=== PATIENT | male | born 1955 | race Caucasian/White ===

== ENCOUNTER 2017-11-09 12:40 | Inpatient (IN) | payer OTHER ==
[~2017-11-09] VITALS: Ht 167.6 cm; Wt 79.5 kg
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
[2017-11-09] MEDS ORDERED: PROPRANOLOL HCL40 M1 PO (12:59)
[2017-11-09] MEDS ORDERED: ADVIL LIQUI-GE200 M1 PO (13:00)
[2017-11-09] MEDS ORDERED: PAROXETINE HCL30 M1 PO (13:09)
[2017-11-09] MEDS ORDERED: ELIMITE60 GM TOP (13:10)
[2017-11-09] MEDS ORDERED: ACYCLOVIR800 M1 PO (13:10)
[2017-11-09] MEDS ORDERED: BENADRYL25 MG PO (13:16)
[2017-11-09 13:35] LABS: ABSOLUTE BASOPHIL COUNT 0 /CUMM (0.0-0.2); ABSOLUTE EOSINOPHIL COUNT 0.8 /CUMM (0.0-0.7); ABSOLUTE GRANULOCYTE CT 8.9 /CUMM (1.4-6.5); ABSOLUTE LYMPH COUNT 1.9 /CUMM (1.2-3.4); BASOPHIL % 0.3 % (0.0-2.0); EOSINOPHIL % 6.3 % (0-5); GRANULOCYTE % 70.3 % (42.2-75.2); MEAN CORPUSCULAR HGB 34.5 PG (27.0-31.0); MEAN CORPUSCULAR HGB CONC 34.5 G/DL (33.0-37.0); MEAN CORPUSCULAR VOLUME 99.8 FL (80.0-94.0); MEAN PLATELET VOLUME 8.6 FL (7.4-10.4); PLATELET COUNT 226 /CUMM (130-400); RBC DISTRIBUTION WIDTH 13.2 % (11.5-14.5); RED BLOOD CELL CT 4.51 /CUMM (4.70-6.10); WHITE BLOOD CELL COUNT 12.7 /CUMM (4.8-10.8)
[2017-11-09 13:46] LABS: PT 10.9 SEC (9.4-12.5); PTT 28 SEC (25-37)
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
[2017-11-09 15:40] VITALS: BP 155/90
--- NOTE | 2017-11-09 16:31 | Admission Certification ---
Admission Certification Certification Statement - As attending physician, I certify that at the time of - admission, based on clinical presentation, severity of - symptoms, need for further diagnostic testing and - therapeutic interventions, and risk of adverse outcomes - without in-hospital treatment, in my clinical assessment, - this patient requires an acute hospital stay for a minimum - of two nights or longer. I have also considered psychsocial - factors such as support system, advanced age, financial - issues, cognitive issues, and failed out-patient treatments, - past re-admission history, safety of patient, and lack of - compliance as applicable. Specific rationale supporting this admission is: Acute mental status change of unclear etiology
[2017-11-09 17:35] VITALS: BP 152/90
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
[2017-11-09 18:39] VITALS: BP 142/90
[2017-11-09 23:19] VITALS: BP 140/80
[2017-11-10] VITALS (16 sets, daily range): BP systolic 130–150; BP diastolic 74–86
--- NOTE | 2017-11-10 08:15 | PN- Att Addend ---
Attending Addendum Attending Brief Note Patient seen and examined. He is much more awake and alert although tremulous today. He knows that prescription in hospital he knows it is 2018. He has a sitter at the bedside. He is normotensive at 130/80, pulse is 85, breathing at 16-18 and afebrile. His lungs are clear to auscultation, heart is S1-S2 regular and abdomen is soft he has this tremor and I did not make him walk. He has a raised maculopapular rash all over his extremities without any mucosal involvement. He is a 62-year-old male who is here with acute confusional state and change in mental status of unclear etiology. He has leukocytosis and the rash but no other obvious source. Now is developing a mild anion gap. Will encourage p.o. fluids, he does have a history of alcohol abuse but no obvious withdrawal I think the Ativan is just adding to the confusional state will stop the standing Ativan and keep the as needed. Will call an ID consult as I am concerned given the rash. Will also get a chest x-ray and follow-up closely.
[2017-11-10 08:19] LABS: ABSOLUTE BASOPHIL COUNT 0.1 /CUMM (0.0-0.2); ABSOLUTE EOSINOPHIL COUNT 0.7 /CUMM (0.0-0.7); ABSOLUTE GRANULOCYTE CT 9.1 /CUMM (1.4-6.5); ABSOLUTE LYMPH COUNT 1.8 /CUMM (1.2-3.4); ABSOLUTE MONOCYTE COUNT 1.4 /CUMM (0.10-0.60); BASOPHIL % 0.5 % (0.0-2.0); EOSINOPHIL % 5.2 % (0-5); GRANULOCYTE % 69.8 % (42.2-75.2); HEMATOCRIT 45.5 % (42-52); MEAN CORPUSCULAR HGB 33.8 PG (27.0-31.0); MEAN CORPUSCULAR HGB CONC 33.8 G/DL (33.0-37.0); MEAN PLATELET VOLUME 9.3 FL (7.4-10.4); PLATELET COUNT 187 /CUMM (130-400); RBC DISTRIBUTION WIDTH 13.5 % (11.5-14.5); RED BLOOD CELL CT 4.54 /CUMM (4.70-6.10); WHITE BLOOD CELL COUNT 13.1 /CUMM (4.8-10.8)
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
--- NOTE | 2017-11-10 15:15 | RADIOLOGY REPORT ---
EXAMINATION: XR PORTABLE CHEST CLINICAL INFORMATION: Shortness of breath. Altered mental status. COMPARISON: None TECHNIQUE: Portable frontal view of the chest was obtained. 2:30 PM FINDINGS: No significant abnormality is noted involving the heart, lungs, mediastinum, bony thorax or soft tissues. IMPRESSION: Unremarkable examination.
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
[2017-11-11] VITALS: BP 140/86
[2017-11-11 06:49] VITALS: BP 132/80
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
[2017-11-11 07:47] LABS: ABSOLUTE BASOPHIL COUNT 0.1 /CUMM (0.0-0.2); ABSOLUTE EOSINOPHIL COUNT 0.7 /CUMM (0.0-0.7); ABSOLUTE GRANULOCYTE CT 7.8 /CUMM (1.4-6.5); ABSOLUTE LYMPH COUNT 1.6 /CUMM (1.2-3.4); ABSOLUTE MONOCYTE COUNT 1.2 /CUMM (0.10-0.60); BASOPHIL % 0.6 % (0.0-2.0); EOSINOPHIL % 6.1 % (0-5); GRANULOCYTE % 68.2 % (42.2-75.2); HEMATOCRIT 43.9 % (42-52); MEAN CORPUSCULAR HGB 34.5 PG (27.0-31.0); MEAN CORPUSCULAR HGB CONC 34.6 G/DL (33.0-37.0); MEAN CORPUSCULAR VOLUME 99.8 FL (80.0-94.0); MEAN PLATELET VOLUME 8.6 FL (7.4-10.4); PLATELET COUNT 212 /CUMM (130-400); RBC DISTRIBUTION WIDTH 13.6 % (11.5-14.5); WHITE BLOOD CELL COUNT 11.5 /CUMM (4.8-10.8)
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
--- NOTE | 2017-11-11 11:53 | PN- Infect Dx ---
Subjective Subjective: Afebrile. He notes overall improvement with no complaints of pruritus. His mental status has reportedly returned to normal. Objective Last 24 Hrs of Vital Signs/I&O Vital Signs Date Time Temp Pulse Resp B/P B/P Pulse O2 O2 Flow FiO2 Mean Ox Delivery Rate 11/11 1000 78 11/11 0819 132/80 11/11 0800 70 11/11 0649 97.9 84 20 132/80 93 11/11 0000 98.2 90 20 140/86 11/10 2155 98.2 90 20 140/86 97 Room Air 11/10 2105 80 140/80 11/10 2030 98.2 80 20 140/80 11/10 1933 84 20 150/80 11/10 1830 80 20 136/74 11/10 1730 80 20 140/78 11/10 1443 96.8 88 20 140/82 92 Room Air 11/10 1406 70 11/10 1349 87 11/10 1200 86 Intake & Output 11/11 1600 11/11 0800 11/11 0000 Intake Total 350 Output Total 0 Balance 350 Intake, IV 10 Intake, Oral 340 Number 2 Bowel Movements Output, Urine 0 Patient 178 lb Weight Physical Exam Other Physical Findings: He appears comfortable, awake and alert, in no acute distress Skin diffuse mostly crusting maculopapular lesions on the trunk and extremities Lungs are clear Heart regular rhythm with no murmur Extremities no cyanosis, clubbing or edema, with no erythema or inflammation noted in the right hand Results Last 24 Hours of Lab Results: Laboratory Tests 11/11 11/11 11/11 0642 0642 0642 Chemistry Sodium (137 - 145 mmol/L) 137 Potassium (3.5 - 5.1 mmol/L) 3.7 Chloride (98 - 107 mmol/L) 100 Carbon Dioxide (22 - 30 mmol/L) 26 Anion Gap (5 - 16) 11 BUN (9 - 20 mg/dL) 13 Creatinine (0.7 - 1.2 mg/dL) 0.6 L Estimated GFR (>60 ml/min) > 60 BUN/Creatinine Ratio (7 - 25 %) 21.7 Magnesium (1.6 - 2.3 mg/dL) 1.8 C-Reactive Prot, Quant (<1.0 mg/dL) 4.2 H C-React Prot High Sens (1.0 - 3.0 mg/L) > 15.0 H Methylmalonic Acid Pending Homocysteine Pending Hematology CBC w Diff NO MAN DIFF REQ WBC (4.8 - 10.8 /CUMM) 11.5 H RBC (4.70 - 6.10 /CUMM) 4.40 L Hgb (14.0 - 18.0 G/DL) 15.2 Hct (42 - 52 %) 43.9 MCV (80.0 - 94.0 FL) 99.8 H MCH (27.0 - 31.0 PG) 34.5 H MCHC (33.0 - 37.0 G/DL) 34.6 RDW (11.5 - 14.5 %) 13.6 Plt Count (130 - 400 /CUMM) 212 MPV (7.4 - 10.4 FL) 8.6 Gran % (42.2 - 75.2 %) 68.2 Lymphocytes % (20.5 - 51.1 %) 14.4 L Monocytes % (1.7 - 9.3 %) 10.7 H Eosinophils % (0 - 5 %) 6.1 H Basophils % (0.0 - 2.0 %) 0.6 Absolute Granulocytes (1.4 - 6.5 /CUMM) 7.8 H Absolute Lymphocytes (1.2 - 3.4 /CUMM) 1.6 Absolute Monocytes (0.10 - 0.60 /CUMM) 1.2 H Absolute Eosinophils (0.0 - 0.7 /CUMM) 0.7 Absolute Basophils (0.0 - 0.2 /CUMM) 0.1 Miscellaneous Ref Lab Test Result Cancelled Ref Lab Test Result Pending Ref Lab Test Result Pending Serology RPR Titer/FTA (NONREACTIVE) NONREACTIVE 11/11 11/10 0600 1655 Hematology ESR Westergren (0 - 10 MM) 3 Immunology FIORELLA Titer ND Anti-Nuclear Antibody (NEG,1:40) NEG 1:40 IFA ASSAY Serology Herpes Simplex Source Pending HSV I DNA PCR Pending HSV II DNA PCR Pending HIV 1&2 Ab Western Blot (NONREACTIVE) NONREACTIVE Last 24 Hours of Mohit Results: No cultures Assessment/Plan ID Impression: Stable, with his temperatures remaining normal and with a persistent mild leukocytosis, with eosinophilia, on Doxycycline, begun yesterday for a questionable cellulitis of the right hand. The etiology of his rash, which began 2 weeks prior to admission, remains unclear. A viral process, such as West Nile virus, is possible, with his altered mental status raising concern for encephalitis, though his mental status appears to have returned to baseline. Disseminated zoster is also a consideration though no vesicles were reported and his rash did not begin in a dermatomal distribution. A drug-induced process seems most likely, particularly with his eosinophilia, though there are no new drugs to implicate. Suggestion: 1. Discontinue Contact Isolation 2. Await Dermatology input 3. Discontinue Doxycycline and follow off antibiotics
[2017-11-11 13:31] VITALS: BP 134/81
--- NOTE | 2017-11-11 17:42 | PN- Neurology ---
Subjective Subjective: Sleeping soundly, took 1-2 minutes to fully awaken. Asking if vest restraint can be d/c'd Remains on 1:1 Objective Vital Signs and I&Os Vital Signs Date Time Temp Pulse Resp B/P B/P Pulse O2 O2 Flow FiO2 Mean Ox Delivery Rate 11/11 1634 87 11/11 1400 89 11/11 1331 98.5 89 17 134/81 94 Room Air 11/11 1200 76 11/11 1000 78 11/11 0819 132/80 11/11 0800 70 11/11 0649 97.9 84 20 132/80 93 11/11 0000 98.2 90 20 140/86 11/10 2155 98.2 90 20 140/86 97 Room Air 11/10 2105 80 140/80 11/10 2030 98.2 80 20 140/80 11/10 1933 84 20 150/80 11/10 1830 80 20 136/74 Intake & Output 11/11 1600 11/11 0800 11/11 0000 11/10 1600 11/10 0800 11/10 0000 Intake Total 400 350 420 240 200 Output Total 650 0 550 250 Balance -250 350 -130 240 -50 Intake, IV 10 20 Intake, Oral 400 340 400 240 200 Number 1 2 Bowel Movements Output, Urine 650 0 550 250 Patient 178 lb 182 lb Weight Weight Bed scale Measurement Method Physical Exam: Awake, alert Oriented to person, place, time speech fluent EOMs full Facial movements symmetric mild postural tremor R>L hand motor 5/5 Current Medications: Current Medications Sig/Carolyn Start time Last Medication Dose Route Stop Time Status Admin Cephalexin 500 MG Q6 11/11 1800 CAN PO Doxycycline Hyclate 100 MG BID 11/10 1900 CA 11/11 PO 11/14 2101 0819 Enoxaparin Sodium 40 MG DAILY@11/09 1945 11/10 SC 210 Folic Acid 1 MG DAILY 11/09 1635 11/11 PO 0819 Hydroxyzine HCl 10 MG TIDPRN PRN 11/09 2100 AC 11/11 PO 0819 Lorazepam 0 Q1P PRN 11/09 1645 AC 11/10 IV 210 Non-Formulary 0 SEE ADMIN CRITERIA 11/10 1899 CAN Medication ANY Paroxetine HCl 30 MG DAILY 11/10 0900 AC 11/11 PO 0818 Permethrin 1 CHANEL ONCE PRN 11/10 1115 DC 11/10 TOP 1739 Propranolol HCl 40 MG BID 11/09 2100 AC 11/11 PO 0819 Thiamine HCl 100 MG DAILY 11/09 1645 AC 11/11 PO 0819 Triamcinolone 1 CHANEL BID 11/11 1530 AC 11/11 Acetonide TOP 1721 Results Last 24 Hours of Lab Results: Laboratory Tests 11/11 11/11 11/11 0642 0642 0642 Chemistry Sodium (137 - 145 mmol/L) 137 Potassium (3.5 - 5.1 mmol/L) 3.7 Chloride (98 - 107 mmol/L) 100 Carbon Dioxide (22 - 30 mmol/L) 26 Anion Gap (5 - 16) 11 BUN (9 - 20 mg/dL) 13 Creatinine (0.7 - 1.2 mg/dL) 0.6 L Estimated GFR (>60 ml/min) > 60 BUN/Creatinine Ratio (7 - 25 %) 21.7 Magnesium (1.6 - 2.3 mg/dL) 1.8 C-Reactive Prot, Quant (<1.0 mg/dL) 4.2 H C-React Prot High Sens (1.0 - 3.0 mg/L) > 15.0 H Methylmalonic Acid Pending Homocysteine Pending Hematology CBC w Diff NO MAN DIFF REQ WBC (4.8 - 10.8 /CUMM) 11.5 H RBC (4.70 - 6.10 /CUMM) 4.40 L Hgb (14.0 - 18.0 G/DL) 15.2 Hct (42 - 52 %) 43.9 MCV (80.0 - 94.0 FL) 99.8 H MCH (27.0 - 31.0 PG) 34.5 H MCHC (33.0 - 37.0 G/DL) 34.6 RDW (11.5 - 14.5 %) 13.6 Plt Count (130 - 400 /CUMM) 212 MPV (7.4 - 10.4 FL) 8.6 Gran % (42.2 - 75.2 %) 68.2 Lymphocytes % (20.5 - 51.1 %) 14.4 L Monocytes % (1.7 - 9.3 %) 10.7 H Eosinophils % (0 - 5 %) 6.1 H Basophils % (0.0 - 2.0 %) 0.6 Absolute Granulocytes (1.4 - 6.5 /CUMM) 7.8 H Absolute Lymphocytes (1.2 - 3.4 /CUMM) 1.6 Absolute Monocytes (0.10 - 0.60 /CUMM) 1.2 H Absolute Eosinophils (0.0 - 0.7 /CUMM) 0.7 Absolute Basophils (0.0 - 0.2 /CUMM) 0.1 Miscellaneous Ref Lab Test Result Cancelled Ref Lab Test Result Pending Ref Lab Test Result Pending Serology RPR Titer/FTA (NONREACTIVE) NONREACTIVE 11/11 599 Serology Herpes Simplex Source Pending HSV I DNA PCR Pending HSV II DNA PCR Pending B12 & TSH nl Assessment/Plan Assessment: Encephalopathy of uncertain etiology ? Alcohol withdrawal-> likely ? Unwitnessed seizure-> doubt Plan: EEG Thiamine CIWA protocol Substance abuse counseling Re-consult prn
[2017-11-11 20:00] VITALS: BP 134/81
--- NOTE | 2017-11-11 20:40 | ELECTROENCEPHALOGRAM REPORT ---
Electroencephalogram Report Electroencephalogram Results Date of service: 11/11/17 Attending MD: Lavon SANDOVAL,Martha Squires Service Rig Operator: Kena Gooden EEG Number: [id number] Test Utilizes: 10-20 system, 21 lead 18 channel digital recording Pertinent Hx/Physical/Neuro Findings/Clin Diagnosis: Altered mental status Inpatient Medications: Current Medications Sig/Carolyn Start time Last Medication Dose Route Stop Time Status Admin Cephalexin 500 MG BID 11/11 2100 AC PO Cephalexin 500 MG Q6 11/11 1800 CAN PO Doxycycline Hyclate 100 MG BID 11/10 1900 DC 11/11 PO 11/14 2101 0819 Enoxaparin Sodium 40 MG DAILY@11/09 1945 AC 11/10 SC 2106 Folic Acid 1 MG DAILY 11/09 1635 AC 11/11 PO 0819 Hydroxyzine HCl 10 MG TIDPRN PRN 11/09 2100 AC 11/11 PO 0819 Lorazepam 0 Q1P PRN 11/09 1645 AC 11/10 IV 2101 Non-Formulary 0 SEE ADMIN CRITERIA 11/10 1899 CAN Medication ANY Paroxetine HCl 30 MG DAILY 11/10 0900 AC 11/11 PO 0818 Propranolol HCl 40 MG BID 11/09 2100 AC 11/11 PO 0819 Thiamine HCl 100 MG DAILY 11/09 1645 AC 11/11 PO 0819 Triamcinolone 1 CHANEL BID 11/11 1530 AC 11/11 Acetonide TOP 1721 Interpretation: The background is dominated by irregular posterior 8-9 hz alpha and more generalized low to moderate amplitude beta activity during wakefulness. In sleep there are vertex waves and spindling is seen. Movement and muscle artefact are present when tremor is noted, no focal, lateralized or epileptiform abnormalities. Photic stimulation unremarkable, hyperventilation deferred. Impression: Abnormal due to mild generalized slowing during moments of wakefulness, normal in sleep, no epileptiform abnormalities, prominent beta suggests benzodiazepine effect.
[2017-11-11 21:37] VITALS: BP 160/84
[2017-11-11 22:00] VITALS: BP 160/84
[2017-11-12 06:00] VITALS: BP 138/80
[2017-11-12 06:22] VITALS: BP 138/80
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
[2017-11-12 07:41] LABS: ABSOLUTE BASOPHIL COUNT 0.1 /CUMM (0.0-0.2); ABSOLUTE EOSINOPHIL COUNT 0.7 /CUMM (0.0-0.7); ABSOLUTE GRANULOCYTE CT 5.6 /CUMM (1.4-6.5); ABSOLUTE MONOCYTE COUNT 1.1 /CUMM (0.10-0.60); BASOPHIL % 0.7 % (0.0-2.0); EOSINOPHIL % 7.9 % (0-5); GRANULOCYTE % 58.8 % (42.2-75.2); HEMATOCRIT 45.3 % (42-52); MEAN CORPUSCULAR HGB 34.2 PG (27.0-31.0); MEAN CORPUSCULAR HGB CONC 33.9 G/DL (33.0-37.0); MEAN CORPUSCULAR VOLUME 100.7 FL (80.0-94.0); MEAN PLATELET VOLUME 8.8 FL (7.4-10.4); PLATELET COUNT 216 /CUMM (130-400); RBC DISTRIBUTION WIDTH 13.3 % (11.5-14.5); WHITE BLOOD CELL COUNT 9.4 /CUMM (4.8-10.8)
--- NOTE | 2017-11-12 11:09 | PN- Infect Dx ---
Subjective Subjective: Afebrile without complaints. He notes minimal pruritus. Objective Last 24 Hrs of Vital Signs/I&O Vital Signs Date Time Temp Pulse Resp B/P B/P Pulse O2 O2 Flow FiO2 Mean Ox Delivery Rate 11/12 0835 92 158/90 11/12 0800 94 Room Air 11/12 0622 99.0 92 18 138/80 94 11/12 0600 99.0 92 18 138/80 11/12 0200 76 11/11 2200 98.3 108 16 160/84 11/11 2137 98.3 108 16 160/84 95 11/11 2028 108 18 160/84 11/11 2000 98.5 89 18 134/81 11/11 1800 76 11/11 1634 87 11/11 1400 89 11/11 1331 98.5 89 17 134/81 94 Room Air 11/11 1200 76 Intake & Output 11/12 1600 11/12 0800 11/12 0000 Intake Total 120 120 Output Total Balance 120 120 Intake, Oral 120 120 Patient 177 lb Weight Physical Exam Other Physical Findings: He appears comfortable in no acute distress Skin diffuse crusted lesions Lungs are clear Heart regular rhythm with no murmur Extremities no cyanosis, clubbing or edema Results Last 24 Hours of Lab Results: Laboratory Tests 11/12 06 Chemistry Sodium (137 - 145 mmol/L) 140 Potassium (3.5 - 5.1 mmol/L) 4.0 Chloride (98 - 107 mmol/L) 103 Carbon Dioxide (22 - 30 mmol/L) 26 Anion Gap (5 - 16) 11 BUN (9 - 20 mg/dL) 13 Creatinine (0.7 - 1.2 mg/dL) 0.6 L Estimated GFR (>60 ml/min) > 60 BUN/Creatinine Ratio (7 - 25 %) 21.7 Hematology CBC w Diff NO MAN DIFF REQ WBC (4.8 - 10.8 /CUMM) 9.4 RBC (4.70 - 6.10 /CUMM) 4.50 L Hgb (14.0 - 18.0 G/DL) 15.4 Hct (42 - 52 %) 45.3 MCV (80.0 - 94.0 FL) 100.7 H MCH (27.0 - 31.0 PG) 34.2 H MCHC (33.0 - 37.0 G/DL) 33.9 RDW (11.5 - 14.5 %) 13.3 Plt Count (130 - 400 /CUMM) 216 MPV (7.4 - 10.4 FL) 8.8 Gran % (42.2 - 75.2 %) 58.8 Lymphocytes % (20.5 - 51.1 %) 21.2 Monocytes % (1.7 - 9.3 %) 11.4 H Eosinophils % (0 - 5 %) 7.9 H Basophils % (0.0 - 2.0 %) 0.7 Absolute Granulocytes (1.4 - 6.5 /CUMM) 5.6 Absolute Lymphocytes (1.2 - 3.4 /CUMM) 2.0 Absolute Monocytes (0.10 - 0.60 /CUMM) 1.1 H Absolute Eosinophils (0.0 - 0.7 /CUMM) 0.7 Absolute Basophils (0.0 - 0.2 /CUMM) 0.1 Last 24 Hours of Mohit Results: No cultures Assessment/Plan ID Impression: Stable, with his temperatures and white blood cell count now both normal, with eosinophilia noted on his differential, suggesting a possible drug allergy, though there are no new medications to implicate. He is now on Keflex, apparently for the possibility of impetigo, which was suggested by Dermatology, though the role of antibiotics at this point seems unclear. The possibility of a viral process, such as West Nile virus, could be considered, with his altered mental status on presentation, though his mental status appears to have returned to baseline fairly quickly. Suggestion: 1. Continue topical treatment per Dermatology 2. Discontinue Keflex and follow off antibiotics
[2017-11-12 13:59] VITALS: BP 142/90
[2017-11-12 16:00] VITALS: BP 142/90
[2017-11-12 20:00] VITALS: BP 142/90
[2017-11-13] VITALS: BP 150/86
[2017-11-13 06:00] VITALS: BP 132/70
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
[2017-11-13 07:45] LABS: ABSOLUTE BASOPHIL COUNT 0.1 /CUMM (0.0-0.2); ABSOLUTE EOSINOPHIL COUNT 0.8 /CUMM (0.0-0.7); ABSOLUTE GRANULOCYTE CT 4.9 /CUMM (1.4-6.5); ABSOLUTE LYMPH COUNT 2.3 /CUMM (1.2-3.4); ABSOLUTE MONOCYTE COUNT 0.9 /CUMM (0.10-0.60); BASOPHIL % 0.9 % (0.0-2.0); EOSINOPHIL % 8.8 % (0-5); GRANULOCYTE % 54.4 % (42.2-75.2); HEMATOCRIT 44.5 % (42-52); MEAN CORPUSCULAR HGB 34.5 PG (27.0-31.0); MEAN CORPUSCULAR HGB CONC 34.5 G/DL (33.0-37.0); MEAN PLATELET VOLUME 8.8 FL (7.4-10.4); PLATELET COUNT 226 /CUMM (130-400); RBC DISTRIBUTION WIDTH 13.4 % (11.5-14.5); RED BLOOD CELL CT 4.45 /CUMM (4.70-6.10)
[2017-11-13 07:59] VITALS: BP 132/70
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
[2017-11-13] MEDS ORDERED: KEFLEX500 M1 PO ×2 (10:22→10:51)
[2017-11-13] MEDS ORDERED: TRIAMCINOLONE A15 G3 TOP ×2 (10:29→10:51)
[2017-11-13] MEDS ORDERED: FOLIC ACID1 M1 PO ×2 (10:31→10:51)
[2017-11-13] MEDS ORDERED: B-1100 MG PO ×2 (10:33→10:51)
--- NOTE | 2017-11-13 10:50 | Patient Discharge Instructions ---
Discharge Instructions General Discharge Information You were seen/treated for: Altered mentation-improved Alcohol Dependence-agreed for AA Maculopapular Rash-Tramciclone + Keflex Tremors Depression/Anxiety You had these procedures: EEG Watch for these problems: Worsening confusion, headaches, dizziness, loss of conciousness, seizure like activity, chest pain/sob Special Instructions: Please follow up with a PCP within [address] Lyons has been provided as a primary care referral. Please follow up with Dermatology within 1 week of discharge. Please follow up with Neurology accordingly within 1 week of discharge. Return to ED if increasing confusion, headaches, loss of conciousness or seizure like activity. Diet Continue normal diet: Yes Acute Coronary Syndrome Inclusion Criteria At DC or during hospital stay patient has or had the following: ACS DIAGNOSIS No Discharge Core Measures Meds if any: Prescribed or Continued at Discharge Meds if any: NOT Prescribed or Continued at Discharge Congestive Heart Failure Inclusion Criteria At DC or during hospital stay patient has or had the following: CHF DIAGNOSIS No Discharge Core Measures Meds if any: Prescribed or Continued at Discharge Meds if any: NOT Prescribed or Continued at Discharge Cerebrovascular accident Inclusion Criteria At DC or during hospital stay patient has or had the following: CVA/TIA Diagnosis No Discharge Core Measures Meds if any: Prescribed or Continued at Discharge Meds if any: NOT Prescribed or Continued at Discharge Venous thromboembolism Inclusion Criteria VTE Diagnosis No VTE Type NONE VTE Confirmed by (Test) NONE Discharge Core Measures - Per Current guidelines, there needs to be overlap - treatment for the first 5 days of Warfarin therapy. - If discharged on Warfarin prior to 5 days of - overlap therapy, the patient will need to be - assessed for post discharge needs including - *Post discharge parental anticoagulation - *Warfarin and/or parental anticoagulation education - *Follow up date to check INR post discharge At least 5 days overlap therapy as Inpatient No Meds if any: Prescribed or Continued at Discharge Note: Overlap Therapy is Warfarin and Anticoagulant Meds if any: NOT Prescribed or Continued at Discharge
== END 2017-11-13 14:00 | DRG 897 ==
LOC: ERH 12:40 → ERHI 14:56 → 1NO 14:56 → ENRESERV 16:03 → CANRESERV 16:03 → ENRESERV 16:33 → ENTRNSPT 17:37 → EDTRNSPTSTS 17:48 → 1NO 18:03 → CMPTRNSPT 18:19 → 1NO 11-11 08:03 → ENPENDDIS 11-13 10:52 → ENTRNSPT 11-13 13:41 → EDTRNSPTSTS 11-13 13:42 → EDTRNSPT 11-13 13:42 → CMPTRNSPT 11-13 13:57 → 1NO 11-13 14:00
PROVIDERS: Internal Medicine; Internal Medicine Adolescent Medicine; Physical Medicine & Rehabilitation Pain Medicine; Student in an Organized Health Care Education/Training Program
DX: F10.239 Alcohol dependence with withdrawal, unspecified (principal); R41.82 Altered mental status, unspecified; L29.9 Pruritus, unspecified; Y90.0 Blood alcohol level of less than 20 mg/100 ml; R21 Rash and other nonspecific skin eruption; F12.99 Cannabis use, unspecified with unspecified cannabis-induced disorder; R25.1 Tremor, unspecified; F32.9 Major depressive disorder, single episode, unspecified; L01.00 Impetigo, unspecified; V49.49XA Driver injured in collision with other motor vehicles in traffic accident, initial encounter; Y92.410 Unspecified street and highway as the place of occurrence of the external cause; L05.91 Pilonidal cyst without abscess; M54.9 Dorsalgia, unspecified; W18.30XA Fall on same level, unspecified, initial encounter; Z91.81 History of falling; Y92.9 Unspecified place or not applicable; F41.9 Anxiety disorder, unspecified
CPT/HCPCS: 1NP; 83921; 87529; 36415; 36592; 71045; 80307; 81003; 82436; 87389; 93005; 93010; 95816; 97110-GO; 97112-GO; 97116-GO; 97162-GP; 97530-GO; G0480; J1650; J3490